=== PATIENT | male | born 1995 | race Caucasian/White ===

== ENCOUNTER 2018-03-05 10:52 | Emergency (ER) | payer OTHER ==
[~2018-03-05] VITALS: Ht 165.1 cm; Wt 54.4 kg
[2018-03-05 11:30] LABS: ABSOLUTE EOSINOPHILS 0.1 thou/uL (0.0-0.7); ABSOLUTE LYMPHOCYTES 1.7 thou/uL (0.8-5.3); ABSOLUTE MONOCYTES 0.4 thou/uL (0.0-1.2); ABSOLUTE NEUTROPHILS 2.1 thou/uL (1.6-8.1); BASOPHILS 0.7 %; EOSINOPHILS 2.7 %; HEMATOCRIT 44.2 % (42.0-52.0); HEMOGLOBIN 14.9 gm/dL (14.0-18.0); MCH 29.8 pg (26.0-34.0); MCHC 33.6 g/dL (28.0-37.0); MCV 88.7 fL (80.0-100.0); MONOCYTES 8.4 %; MPV 9.1 fl. (7.2-11.1); NUCLEATED RBCS 0 /100WBC; PLATELET COUNT* 216 thou/uL (150-400); POLYS 48.2 %; RBC 4.99 mil/uL (4.50-6.00); WBC 4.3 thou/uL (4.0-11.0)
[2018-03-05 11:44] LABS: ANION GAP 6 mmol/L (7-16); BUN 15 mg/dL (7-18); CALCIUM 8.7 mg/dL (8.5-10.1); CHLORIDE 103 mmol/L (98-107); CO2 29 mmol/L (21-32); GLUCOSE 96 mg/dL (70-99); POTASSIUM 3.6 mmol/L (3.5-5.1); SODIUM 138 mmol/L (136-145)
[2018-03-05 11:56] LABS: ALBUMIN 4.2 g/dL (3.4-5.0); ALKALINE PHOSPHATASE 64 U/L (46-116); LIPASE 144 U/L (73-393); NT-PRO BRAIN NAT PEPTIDE 5 pg/mL (<300); SGOT 24 U/L (15-37); SGPT 35 U/L (30-65); TOTAL BILIRUBIN 2.1 mg/dL (<0.1-1.0); TOTAL PROTEIN 7.5 g/dL (6.4-8.2); TROPONIN-I LEVEL <0.06 ng/mL (<0.06)
[2018-03-05 12:09] VITALS: BP 105/66
--- NOTE | 2018-03-05 14:54 | EKG ---
[place] [address] ELECTROCARDIOGRAM REPORT Name: OPAL MUNOZ Room: [facility]#: [id number] Admission: 03/05/18 Attend Phys: Discharge: 03/05/18 Date of : [birth year] Report #: [id number] THIS REPORT FOR: //name// [facility] ED Test Date: 2018-03-05 Test Time: 10:56:51 Pat Name: OPAL MUNOZ Department: Room: Gender: Manager Material: Fany FLAHERTY : 1995 Requested By: Bebeto Diaz Order Number: [id number] MD: Guy Mancini Measurements Intervals [place] Rate: 98 P: 94 [place]: 150 QRS: 62 QRSD: 89 T: 10 QT: 336 QTc: 430 Interpretive Statements Sinus tachycardia Baseline wander in lead(s) III,aVL,aVF No previous ECG available for comparison Electronically Signed On 03-05-2018 14:54:20 CDT by Guy Mancini [email or web address] <ELECTRONICALLY SIGNED> By: Guy Mancini MD, [facility] 03/05/18 1454 1056 1056 Guy Mancini MD, FAC /EPI
== END 2018-03-05 12:09 | disposition home or self-care (01) ==
LOC: M.ERS 10:52
PROVIDERS: Emergency Medicine
DX: R07.89 Other chest pain (principal)